=== PATIENT | male | born 1965 | race African-American/Black ===

== ENCOUNTER 2020-11-28 09:07 | Day surgery (SDC) | payer OTHER ==
[2020-11-24 11:07] VITALS: BMI 34.9
[2020-11-28 11:08] VITALS: TEMP 97.8
[2020-11-28 11:38] VITALS: BP 108/85; PULSE 87
== END 2020-11-28 12:00 | disposition home or self-care (01) ==
LOC: FASU-ENDO 09:07
PROVIDERS: ATTEND Internal Medicine Gastroenterology
PROC: 0DJD8ZZ Inspection of Lower Intestinal Tract, Via Natural or Artificial Opening Endoscopic (ICD-10-PCS; principal; 2020-11-28 10:29)
DX: Z12.11 Encounter for screening for malignant neoplasm of colon (principal)